=== PATIENT | female | born 1990 | race Caucasian/White ===

== ENCOUNTER 2019-11-29 20:53 | Emergency (ER) | payer OTHER ==
[2019-11-29 23:42] LABS: ABSOLUTE EOSINOPHILS # (AUTO) 0.1 10^3/uL (0.0-0.6); ABSOLUTE LYMPHOCYTES (AUTO) 2.3 10^3/uL (0.5-4.7); ABSOLUTE MONOCYTES (AUTO) 0.6 10^3/uL (0.1-1.4); ABSOLUTE NEUT (AUTO) 3.9 10^3/uL (1.7-8.2); BASOPHILS % (AUTO) 0.5 % (0-2); EOSINOPHILS % (AUTO) 0.9 % (0-6); HEMATOCRIT 41.5 % (36.0-47.0); HEMOGLOBIN 14.3 g/dL (12.0-15.5); LYMPHOCYTES % (AUTO) 33.7 % (13-45); MEAN CORPUSCULAR HEMOGLOBIN 30.6 pg (27.0-33.4); MEAN CORPUSCULAR HGB CONC 34.4 g/dL (32.0-36.0); MEAN CORPUSCULAR VOLUME 89 fl (80-97); MONOCYTES % (AUTO) 8.3 % (3-13); PLATELET COUNT 288 10^3/uL (150-450); RED BLOOD COUNT 4.67 10^6/uL (3.72-5.28); RED CELL DISTRIBUTION WIDTH 13.3 % (11.5-14.0); SEGMENTED NEUTROPHILS % (AUTO) 56.6 % (42-78); TOTAL CELLS COUNTED % (AUTO) 100 %
[2019-11-30 01:00] LABS: ALBUMIN 4.4 g/dL (3.5-5.0); ANION GAP 8 (5-19); ASPARTATE AMINO TRANSFERASE 33 U/L (14-36); BLOOD UREA NITROGEN 11 mg/dL (7-20); CALCIUM 9.3 mg/dL (8.4-10.2); CARBON DIOXIDE 30 mmol/L (22-30); CHLORIDE 101 mmol/L (98-107); GLUCOSE 102 mg/dL (75-110); POTASSIUM 3.7 mmol/L (3.6-5.0)
[2019-11-30 01:01] LABS: ALKALINE PHOSPHATASE 31 U/L (38-126); BILIRUBIN,TOTAL 1.1 mg/dL (0.2-1.3); TOTAL PROTEIN 7.6 g/dL (6.3-8.2)
[2019-11-30 01:44] LABS: RBCS (WET MOUNT) FEW RBCS SEEN; T.VAGINALIS (WET MOUNT) NO TRICHOMONAS SEEN; WBCS (WET MOUNT) 1+ WBCS SEEN; YEAST (WET MOUNT) NO YEAST SEEN
[2019-11-30] MEDS ORDERED: AZITHROMYCIN 250 MG TABLET PO ONE (01:59)
[2019-11-30] MEDS ORDERED: LIDOCAINE 1% INJ-PF (10 MG/ML) 30 ML SDV INJ ONE (01:59)
[2019-11-30] MEDS ORDERED: CEFTRIAXONE INJ 250 MG VIAL IM ONE (01:59)
[2019-11-30] MEDS ORDERED: LEVONORGESTREL 1.5 MG TABLET (1 TAB/ER-USE) PO ONE (01:59)
[2019-11-30] MEDS ORDERED: PROMETHAZINE HCL 25 MG TABLET PO ONE (01:59)
[2019-11-30 03:00] LABS: CHLAM PCR NOT DETECTED (NOT DETECT)
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
[2019-11-30 05:04] VITALS: BP 130/71
[2019-12-01 11:37] LABS: HEPATITS B SURFACE ANTIGEN Negative (Negative)
[2019-12-01 11:46] LABS: HEPATITIS C VIRUS ANTIBODY <0.1 s/co ratio (0.0-0.9)
== END 2019-11-30 05:31 | disposition home or self-care (01) ==
LOC: ER 20:53
DX: T76.21XA Adult sexual abuse, suspected, initial encounter (principal); S50.312A Abrasion of left elbow, initial encounter; X58.XXXA Exposure to other specified factors, initial encounter; R22.0 Localized swelling, mass and lump, head
CPT/HCPCS: 99285; 96372; 36415; 87210; 85025; 81025; 86592; 80053; 86701; 87491; 87591; 80074; A9270; J3490; J0696